=== PATIENT | male | born 1975 | race Hispanic/Latino ===

== ENCOUNTER 2017-04-27 16:14 | Emergency (ER) | payer OTHER ==
[~2017-04-27] VITALS: Ht 175.3 cm; Wt 85.7 kg
[2017-04-27 16:33] LABS: BASOPHIL (%) 0.4 % (0-1); EOSINOPHIL (%) 1.6 % (0-5); EOSINOPHIL COUNT 0.2 K/uL (0-0.3); HEMATOCRIT 47.1 % (38.0-50.0); HEMOGLOBIN 17.3 G/DL (12.5-16.6); IMMATURE GRANULOCYTE (%) 0.3 % (0.0-0.7); LYMPHOCYTE (%) 39.3 % (15-42); LYMPHOCYTE COUNT 3.8 K/uL (1.0-2.8); MCH 31.9 PG (29.0-34.0); MCHC 36.7 G/DL (30.0-36.0); MCV 86.9 FL (86-99); MONOCYTE (%) 8.2 % (3-12); MONOCYTE COUNT 0.8 K/uL (0-0.8); NEUTROPHIL (%) 50.2 % (45-76); NEUTROPHIL COUNT 4.9 K/uL (1.8-6.4); PLATELET COUNT 307 K/uL (156-360); RBC DIS.WIDTH-CV 11.9 % (11.8-14.6); RBC DIS.WIDTH-SD 37.8 % (39-53); RED BLOOD COUNT 5.42 M/uL (4.00-5.50); WHITE BLOOD COUNT 9.7 K/uL (4.1-10.2)
[2017-04-27 16:42] LABS: PTT 33.3 SEC (25-37)
[2017-04-27 16:48] LABS: AMYLASE 105 IU/L (1-118); CHLORIDE 100 mEq/L (99-109); POTASSIUM 4.1 mEq/L (3.7-5.4); SODIUM 136 mEq/L (136-147)
[2017-04-27 16:50] LABS: GLUCOSE 247 mg/dL (70-99)
[2017-04-27 16:53] LABS: SERUM ETHYL ALCOHOL < 10 mg/dL
[2017-04-27 16:54] LABS: CREATININE 0.9 mg/dL (0.6-1.3); UREA NITROGEN (BUN) 10 mg/dL (9-23)
[2017-04-27 16:55] LABS: GFR ESTIMATE (CALCULATED) > 59 mL/min/ (58.99-99999)
[2017-04-27 16:57] LABS: LIPASE 27 U/L (1.0-51.0)
[2017-04-27 16:58] LABS: TROP-I INTERPRETATION NEGATIVE; TROPONIN-I 0.01 ng/mL (0.0-0.30)
[2017-04-27 17:41] LABS: APPEARANCE CLEAR ((CLEAR)); BILIRUBIN NEGATIVE; BLOOD NEGATIVE; COLOR STRAW ((YELLOW)); GLUCOSE (STRIP) >=500; KETONES NEGATIVE; LEUKOCYTES NEGATIVE; NITRITE NEGATIVE; PROTEIN (STRIP) NEGATIVE; SPECIFIC GRAVITY 1.011 (1.000-1.030); UCUL ADDED? NO; UROBILINOGEN 0.2 MG/DL (0.2-1.0)
[2017-04-27 18:01] LABS: AMPHETAMINE NEGATIVE (500 ng/mL); BARBITURATES NEGATIVE (200 ng/mL); BENZODIAZEPINES NEGATIVE (150 ng/mL); BUPRENORPHINE NEGATIVE (10 ng/mL); COCAINE NEGATIVE (150 ng/mL); METHADONE NEGATIVE (200 ng/mL); METHAMPHETAMINE NEGATIVE (500 ng/mL); OPIATES (MORPHINE) NEGATIVE (100 ng/mL); OXYCODONE NEGATIVE (100 ng/mL); PHENCYCLIDINE NEGATIVE (25 ng/mL); PROPOXYPHENE NEGATIVE (300 ng/mL); THC CANNABINOIDS NEGATIVE (50 ng/mL); TRICYCLIC ANTIDEPRESSANTS NEGATIVE (300 ng/mL)
[2017-04-27 20:47] VITALS: BP 122/91
== END 2017-04-27 20:51 | disposition short-term general hospital (02) ==
LOC: EME 16:14
PROVIDERS: Emergency Medicine
DX: R51 Headache (principal); R53.1 Weakness; R20.0 Anesthesia of skin; R29.810 Facial weakness; R47.01 Aphasia; Q28.3 Other malformations of cerebral vessels
CPT/HCPCS: 70450; 70496; 70498; 71046; 80047; 80048; 81003; 82150; 83690; 84484; 85025; 85610; 85730; 86850; 86900; 86901; 93005; 99281; 99285; G0480